=== PATIENT | male | born 1970 | race Asian ===

== ENCOUNTER 2020-03-25 15:21 | Inpatient (IN) | payer MEDICAID, OTHER ==
[~2020-03-25] VITALS: Ht 175.3 cm; Wt 78.9 kg
[~2020-03-25 15:21] MED LIST: ALBU8HFA4 IH
[2020-03-25] MEDS ORDERED: THIA100T67 PO (16:08)
[2020-03-25] MEDS ORDERED: VALP250C48 PO (16:08)
[2020-03-25] MEDS ORDERED: AMLO10TA7 PO (16:08)
[2020-03-25] MEDS ORDERED: FAMO20 PO (16:08)
[2020-03-25] MEDS ORDERED: BROM0.8T PO (16:08)
[2020-03-25 16:51] LABS: VALPROIC ACID 35 mcg/mL (50-100)
[2020-03-25 17:01] LABS: BASOPHILS % (AUTO) 0.5 % (0.0-2.0); EOSINOPHILS % (AUTO) 3.8 % (1.0-6.0); HEMATOCRIT 41.1 % (41-53); HEMOGLOBIN 13.8 g/dL (13.5-17.5); LYMPHOCYTES # (AUTO) 1.8 K/uL (1.0-4.8); LYMPHOCYTES % (AUTO) 27.1 % (22.0-44.0); MEAN CORPUSCULAR HEMOGLOBIN 29.5 pg (26.0-34.0); MEAN CORPUSCULAR HGB CONC 33.5 G/dL (31.0-37.0); MEAN CORPUSCULAR VOLUME 88 fL (80-100); MONOCYTES # (AUTO) 0.6 K/uL (0.1-1.0); MONOCYTES % (AUTO) 9.7 % (2.0-9.0); NEUTROPHILS # (AUTO) 3.8 K/uL (1.8-7.7); NEUTROPHILS % (AUTO) 58.9 % (40.0-70.0); PLATELET COUNT (AUTO) 193 K/uL (150-450); RED BLOOD CELL COUNT(AUTO) 4.67 MIL/uL (4.50-5.90); RED CELL DISTRIBUTION WIDTH 15.5 % (11.5-14.5)
[2020-03-25 17:14] LABS: ANION GAP 10 mmol/L (8-16); CALCIUM, TOTAL 9.5 mg/dL (8.8-10.5); CARBON DIOXIDE 28 mmol/L (22-29); CHLORIDE 103 mmol/L (98-107); GLOMERULAR FILTR. RATE CALC > 60 mL/min (>60); GLUCOSE,RANDOM 89 mg/dL (70-110); POTASSIUM 3.7 mmol/L (3.5-5.1); SODIUM SERUM 141 mmol/L (136-145); UREA NITROGEN, BLOOD 21 mg/dL (7-18)
[2020-03-25 17:19] LABS: ALANINE AMINOTRANSFERASE 22 U/L (12-78); ALBUMIN 4.1 g/dL (3.4-5.0); ALKALINE PHOSPHATASE 69 U/L (46-116); ASPARTATE AMINOTRANSFERASE 21 U/L (15-37); BILIRUBIN,TOTAL 0.5 mg/dL (0.1-1.0); TOTAL PROTEIN, SERUM 8.6 g/dL (6.4-8.2)
[2020-03-25] MEDS ORDERED: LORazepam 1 MG TABLET PO PRN (17:45)
[2020-03-25] MEDS ORDERED: QUEtiapine FUMARATE 100 MG TABLET PO PRN (17:45)
[2020-03-25] MEDS ORDERED: TUBERCULIN, PURIFIED PROTEIN DERIVATIVE 5 TU/0.1 ML SYRINGE ID ONE (17:45)
[2020-03-25] MEDS ORDERED: MAG HYDROX/AL HYDROX/SIMETH ES 30 ML SUSPENSION UDCUP PO PRN (17:45)
[2020-03-25] MEDS ORDERED: LOPERAMIDE HCL 2 MG CAPSULE PO PRN (17:45)
[2020-03-25] MEDS ORDERED: MAGNESIUM HYDROXIDE SUSPENSION 30 ML UDCUP PO PRN (17:45)
[2020-03-25] MEDS ORDERED: HydrOXYzine PAMOATE 50 MG CAPSULE PO PRN (17:45)
[2020-03-25] MEDS ORDERED: GuaiFENesin/D-METHORPHAN [SUGAR-FREE] 200-20MG/10 ML SYRUP UDCUP PO PRN (17:45)
[2020-03-25] MEDS ORDERED: ACETAMINOPHEN 325 MG TABLET PO PRN (17:45)
[2020-03-25] MEDS ORDERED: ZOLPIDEM TARTRATE 10 MG TABLET PO PRN (17:45)
[2020-03-25] MEDS ORDERED: PROMETHAZINE HCL 25 MG TABLET PO PRN (17:45)
[2020-03-25 19:05] LABS: AMPHET/METH SCREEN,URINE NEGATIVE (NEGATIVE); BARBITURATE SCREEN, URINE NEGATIVE (NEGATIVE); BENZODIAZEPINES SCREEN,URINE NEGATIVE (NEGATIVE); CANNABINOID SCREEN,URINE NEGATIVE (NEGATIVE); COCAINE SCREEN,URINE NEGATIVE (NEGATIVE); METHADONE SCREEN, URINE NEGATIVE (NEGATIVE); OPIATE SCREEN,URINE NEGATIVE (NEGATIVE)
[2020-03-25 19:08] LABS: PHENCYCLIDINE SCREEN,URINE NEGATIVE (NEGATIVE)
[2020-03-25] MEDS ORDERED: OLANZapine 5 MG RAPDIS TABLET PO SCH (21:00)
[2020-03-25] MEDS: DIVALPROEX SODIUM 500 MG ER TABLET PO SCH (21:08)
[2020-03-25] MEDS: THIAMINE MONONITRATE 100 MG TABLET PO SCH (21:08)
[2020-03-26 01:21] VITALS: BP 155/85
[2020-03-26 02:13] VITALS: BP 155/85
[2020-03-26 08:09] LABS: CHOL/HDL RATIO 6.5 (4.2-7.3); FREE T4 (FREE THYROXINE) 1.16 ng/dL (0.76-1.46); THYROID STIMULATING HORMONE 1.92 uIU/mL (0.36-3.74)
[2020-03-26 08:23] LABS: HEMOGLOBIN A1C 5.3 % (3.8-5.6)
[2020-03-26] MEDS: FLUoxetine HCL 20 MG CAPSULE PO SCH (08:55)
[2020-03-26] MEDS: THIAMINE MONONITRATE 100 MG TABLET PO SCH ×2 (08:55→16:18)
[2020-03-26] MEDS: FOLIC ACID 1 MG TABLET PO SCH (08:55)
[2020-03-26] MEDS: MULTIVITAMINS WITH MINERALS, THERAPEUTIC TABLET PO SCH (08:55)
[2020-03-26 13:40] VITALS: BP 146/86
[2020-03-26 17:23] VITALS: BP 153/88
[2020-03-26] MEDS: DIVALPROEX SODIUM 500 MG ER TABLET PO SCH (20:31)
[2020-03-26] MEDS: OLANZapine 10 MG RAPDIS TABLET PO SCH (20:33)
[2020-03-27 08:02] VITALS: BP_SYST 125; BP_SYST 131; BP_DIAS 75; BP_DIAS 90
[2020-03-27] MEDS: THIAMINE MONONITRATE 100 MG TABLET PO SCH ×2 (08:37→16:11)
[2020-03-27] MEDS: FOLIC ACID 1 MG TABLET PO SCH (08:37)
[2020-03-27] MEDS: FAMOTIDINE 20 MG TABLET PO SCH (08:37)
[2020-03-27] MEDS: AmLODIPine BESYLATE 10 MG TABLET PO SCH (08:37)
[2020-03-27] MEDS: MULTIVITAMINS WITH MINERALS, THERAPEUTIC TABLET PO SCH (08:37)
[2020-03-27] MEDS: FLUoxetine HCL 20 MG CAPSULE PO SCH (08:37)
[2020-03-27 16:48] VITALS: BP 134/80
[2020-03-27] MEDS ORDERED: FLUO-191 PO (20:05)
[2020-03-27] MEDS ORDERED: DIVA500T52 PO (20:05)
[2020-03-27] MEDS ORDERED: OLAN10TA22 PO (20:05)
[2020-03-27] MEDS: DIVALPROEX SODIUM 500 MG ER TABLET PO SCH (20:57)
[2020-03-27] MEDS: OLANZapine 10 MG RAPDIS TABLET PO SCH (20:58)
[2020-03-28 08:00] VITALS: BP 153/84
[2020-03-28] MEDS: THIAMINE MONONITRATE 100 MG TABLET PO SCH (08:37)
[2020-03-28] MEDS: FOLIC ACID 1 MG TABLET PO SCH (08:37)
[2020-03-28] MEDS: FAMOTIDINE 20 MG TABLET PO SCH (08:37)
[2020-03-28] MEDS: AmLODIPine BESYLATE 10 MG TABLET PO SCH (08:37)
[2020-03-28] MEDS: MULTIVITAMINS WITH MINERALS, THERAPEUTIC TABLET PO SCH (08:37)
[2020-03-28] MEDS ORDERED: FLUoxetine HCL 20 MG CAPSULE PO SCH (09:00)
== END 2020-03-28 15:50 | disposition home or self-care (01) | DRG 885 ==
LOC: EMS 15:21 → UNDOADMIN 23:30 → 3EI 23:30 → UNDOADMIN 23:56 → 3EI 03-26 09:37
PROVIDERS: ADMIT Psychiatry & Neurology Psychiatry; ATTEND Psychiatry & Neurology Psychiatry
DX: F32.2 Major depressive disorder, single episode, severe without psychotic features (principal); R45.851 Suicidal ideations; I69.354 Hemiplegia and hemiparesis following cerebral infarction affecting left non-dominant side; K21.9 Gastro-esophageal reflux disease without esophagitis; I10 Essential (primary) hypertension; R13.10 Dysphagia, unspecified; R47.1 Dysarthria and anarthria; Z91.19 Patient's noncompliance with other medical treatment and regimen
CPT/HCPCS: 83036; 84439; 84443; 86592; 92526; 92610; 97112; 97116; 97162; 97166; 97530; 97535; G0480